=== PATIENT | male | born 1990 | race American Indian/Alaskan Native ===

== ENCOUNTER 2021-10-28 10:08 | Emergency (ER) | payer OTHER ==
--- NOTE | 2021-10-28 14:07 | Emergency Department Report ---
ED Upper Extremity Inj HPI - General Chief Complaint: Head Injury Stated Complaint: THUMP PAIN Time Seen by Provider: 10/28/21 12:15 Source: patient Mode of arrival: Ambulatory Limitations: No Limitations - History of Present Illness Initial Comments: Patient is 31 years old male with no significant past medical history. Patient presented to the ER for evaluation of right thumb injury. Patient stated that his thumb was jammed 2 days ago. He denied any other injuries. MD Complaint: Injury to:: right, hand, finger -: days(s) Other Extremity Injury: Hand: Right Other Injuries: none Severity scale (0 -10): 5 Improves With: none, immobilization Worsens With: movement of extremity Context: direct blow Associated Symptoms: denies other symptoms - Related Data Allergies Allergy/AdvReac Type Severity Reaction Status Date / Time No Known Allergies Allergy Verified 10/28/21 13:58 ED Review of Systems ROS: Stated complaint: THUMP PAIN Other details as noted in HPI Comment: All other systems reviewed and negative Constitutional: denies: chills, fever Respiratory: denies: cough, shortness of breath, SOB at rest Cardiovascular: denies: chest pain Gastrointestinal: denies: abdominal pain, nausea, vomiting Musculoskeletal: denies: back pain ED Physical Exam - General Limitations: No Limitations General appearance: alert, in no apparent distress - Head Head exam: Present: atraumatic, normocephalic, normal inspection - Eye Eye exam: Present: normal appearance - ENT ENT exam: Present: normal exam, normal orophraynx, mucous membranes moist - Neck Neck exam: Present: normal inspection, full ROM. Absent: tenderness, meningismus - Respiratory Respiratory exam: Present: normal lung sounds bilaterally - Cardiovascular Cardiovascular Exam: Present: regular rate, normal rhythm, normal heart sounds - GI/Abdominal GI/Abdominal exam: Present: soft, normal bowel sounds. Absent: distended, tenderness, guarding, rebound, rigid, organomegaly, mass, bruit, pulsatile mass, hernia - Extremities Exam Extremities exam: Present: normal inspection, full ROM, normal capillary refill. Absent: tenderness - Expanded Upper Extremity Exam Right Hand Wrist exam: Present: tenderness. Absent: full ROM Neuro motor exam: Present: wrist extension intact, thumb opposition intact Neurosensory exam: Present: 2-point discrimination, radial nerve intact, ulnar nerve intact, median nerve intact Vascular: Present: normal capillary refill - Back Exam Back exam: Present: normal inspection - Neurological Exam Neurological exam: Present: alert, oriented X3, CN II-XII intact - Psychiatric Psychiatric exam: Present: normal mood - Skin Skin exam: Present: warm, intact, normal color ED Course Vital Signs 10/28/21 13:56 Temperature 98 F Pulse Rate 79 Respiratory 16 Rate Blood Pressure 129/70 [Left] O2 Sat by Pulse 100 Oximetry ED Medical Decision Making - Radiology Data Radiology results: report reviewed - Medical Decision Making Patient is 31 years old male with no significant past medical history. Patient presented to the ER for evaluation of right thumb injury. Patient stated that his thumb was jammed 2 days ago. He denied any other injuries. Right hand x-ray is unremarkable including the thumb. Patient given prescription for Naprosyn and advised to follow-up with his primary doctor in the next 2 to 3 days and to return to the ER if he develop any new symptoms. Critical care attestation.: If time is entered above; I have spent that time in minutes in the direct care of this critically ill patient, excluding procedure time. ED Disposition Clinical Impression: Contusion of thumb, right Disposition: 01 HOME / SELF CARE / HOMELESS Is pt being admited?: No Condition: Stable Instructions: Contusion, [id number] Referrals: PRIMARY CARE, [Primary Care Provider] - 3-5 Days
--- NOTE | 2021-10-28 14:43 | XRay Report ---
RIGHT HAND 3 VIEWS INDICATION: RIGHT THUMB INJURY. COMPARISON: None. IMPRESSION: No acute osseous or soft tissue abnormality. No significant DJD. The right thumb appe ars unremarkable. Signer Name: Tyler Flores Jr, MD Signed: 10/28/2021 2:38 PM Workstation Name: [id number]
[2021-10-28 15:59] VITALS: BP 108/75
== END 2021-10-28 15:59 | disposition home or self-care (01) ==
LOC: ED 10:08
DX: S60.011A Contusion of right thumb without damage to nail, initial encounter (principal); W23.0XXA Caught, crushed, jammed, or pinched between moving objects, initial encounter; Y93.89 Activity, other specified; Y92.89 Other specified places as the place of occurrence of the external cause; Y99.8 Other external cause status
CPT/HCPCS: 99283

== ENCOUNTER 2021-11-15 03:21 | Emergency (ER) | payer OTHER ==
[2021-11-15] MEDS ORDERED: cephALEXin 500 MG CAP PO ONE (05:09)
[2021-11-15] MEDS ORDERED: TETANUS,DIPH,PERTUSS(ACELL) VACCINE 0.5 ML SYRINGE IM ONE (05:09)
[2021-11-15] MEDS ORDERED: traMADol 50 MG TAB PO ONE (05:10)
[2021-11-15] MEDS ORDERED: LIDOCAINE-MPF (1%) 10 MG/1 ML VIAL 5 ML INFILTRATI ONE (05:10)
--- NOTE | 2021-11-15 06:14 | Emergency Department Report ---
ED Lower Extremity HPI - General Chief Complaint: Extremity Injury, Lower Stated Complaint: TOE NAIL INJURY Time Seen by Provider: 11/15/21 05:09 Source: patient Mode of arrival: Ambulatory Limitations: No Limitations - History of Present Illness Initial Comments: Patient 31-year-old male who presents for left great toenail partial avulsion. Patient states he is hit his nail on his door causing the nail to push back.. Sent approximately 8 hours ago. Patient complains of 5/10 pain with incidental palpation and movement. No erythema no deformity patient is amatory with steady gait. Last tetanus unknown. Patient denies history of diabetes. - Related Data Previous Rx's Medication Instructions Recorded Last Taken Type Naproxen [Naprosyn] 500 mg PO BID #14 tablet 10/28/21 Unknown Rx cephALEXin [Keflex] 500 mg PO BID 7 Days #14 cap 11/15/21 Unknown Rx traMADoL [Ultram] 50 mg PO Q6HR PRN #12 tablet 11/15/21 Unknown Rx Allergies Allergy/AdvReac Type Severity Reaction Status Date / Time No Known Allergies Allergy Verified 10/28/21 13:58 ED Review of Systems ROS: Stated complaint: TOE NAIL INJURY Other details as noted in HPI Constitutional: denies: chills, fever Eyes: denies: eye pain, eye discharge, vision change ENT: denies: ear pain, throat pain Respiratory: denies: cough, shortness of breath, wheezing Cardiovascular: denies: chest pain, palpitations Endocrine: no symptoms reported Gastrointestinal: denies: abdominal pain, nausea, diarrhea Genitourinary: denies: urgency, dysuria Musculoskeletal: other Skin: denies: rash, lesions Neurological: denies: headache, weakness, paresthesias Psychiatric: denies: anxiety, depression Hematological/Lymphatic: denies: easy bleeding, easy bruising ED Past Medical Hx - Medications Home Medications: Home Medications Medication Instructions Recorded Confirmed Last Taken Type Naproxen [Naprosyn] 500 mg PO BID #14 tablet 10/28/21 Unknown Rx cephALEXin [Keflex] 500 mg PO BID 7 Days #14 cap 11/15/21 Unknown Rx traMADoL [Ultram] 50 mg PO Q6HR PRN #12 tablet 11/15/21 Unknown Rx ED Physical Exam - General Limitations: No Limitations General appearance: alert, in no apparent distress - Head Head exam: Present: atraumatic, normocephalic - Eye Eye exam: Present: normal appearance - ENT ENT exam: Present: mucous membranes moist - Neck Neck exam: Present: normal inspection - Respiratory Respiratory exam: Present: normal lung sounds bilaterally. Absent: respiratory distress - Cardiovascular Cardiovascular Exam: Present: regular rate, normal rhythm. Absent: systolic murmur, diastolic murmur, rubs, gallop - GI/Abdominal GI/Abdominal exam: Present: soft, normal bowel sounds - Rectal Rectal exam: Present: deferred - Extremities Exam Extremities exam: Present: normal inspection - Expanded Lower Extremity Exam Left Foot/Toe exam: Present: tenderness, nail avulsion (Left great toe partial post) - Back Exam Back exam: Present: normal inspection, full ROM. Absent: CVA tenderness (R), CVA tenderness (L) - Neurological Exam Neurological exam: Present: alert, oriented X3 - Expanded Neurological Exam Expanded Patient oriented to: Present: person, place, time Motor strength exam: RLE: 5, LLE: 5 Best Eye Response (Kylie): (4) open spontaneously Best Motor Response (Grenola): (6) obeys commands Best Verbal Response (G[place]ola): (5) oriented [place] Total: 15 - Psychiatric Psychiatric exam: Present: normal affect, normal mood - Skin Skin exam: Present: warm, dry, intact, normal color. Absent: rash ED Course Vital Signs 11/15/21 03:24 Temperature 98.4 F Pulse Rate 85 Respiratory 18 Rate Blood Pressure 116/67 [Right] O2 Sat by Pulse 99 Oximetry - I & D Left Toe Type of Procedure: Simple (Left great toe partial avulsion) Site: Left great toe partial avulsion Blade Size: 11 I & D Procedure: betadine prep, sterile drapes applied, sterile dressing applied Progress: Left great toe partial avulsion site cleaned with Betadine solution, anesthesia with 1% lidocaine x3 cc anesthesia was achieved. Nailbed removed with 11 blade scalpel and 6 inch block forceps nailbed probed with Q-tip applicator, nail removed intact. All bleeding is controlled Vaseline and sterile dressing applied, sterile dressing applied patient given wound care instructions including follow-up with primary care doctor signs and symptoms of infection in 2 days. Wound care and dressing change. Patient tolerated procedure with minimal distress ED Lower Extremity MDM - Medical Decision Making Left toe partial avulsion see procedure note for nail removal patient given discharge instructions symptoms of infection when to return to ED. DC'd at this time with prescriptions. Patient verbalized agreement and understanding with same patient ambulatory to home at this time. Critical care attestation.: If time is entered above; I have spent that time in minutes in the direct care of this critically ill patient, excluding procedure time. ED Disposition Clinical Impression: Nail avulsion of toe Qualifiers: Encounter type: initial encounter Qualified Code(s): S91.209A - Unspecified open wound of unspecified toe(s) with damage to nail, initial encounter Disposition: HOME / SELF CARE / HOMELESS Is pt being admited?: No Does the pt Need Aspirin: No Condition: Stable Instructions: Fingernail or Toenail Removal, Adult, Care After Additional Instructions: Wound care daily as directed. Take all medications as prescribed, follow-up with your doctor in 2 days for wound check. Return to emergency department for symptoms worsen. Prescriptions: cephALEXin [Keflex] 500 mg PO BID 7 Days #14 cap traMADoL [Ultram] 50 mg PO Q6HR PRN #12 tablet PRN Reason: Pain Referrals: DANIELLE KEENE MD [Staff Physician] - 3-5 Days Forms: Work/School Release Form(ED) Time of Disposition: 06:17
[2021-11-15 06:35] VITALS: BP 104/56
== END 2021-11-15 06:30 | disposition home or self-care (01) ==
LOC: ED 03:21
DX: S91.202A Unspecified open wound of left great toe with damage to nail, initial encounter (principal); W22.8XXA Striking against or struck by other objects, initial encounter; Y93.89 Activity, other specified; Y92.89 Other specified places as the place of occurrence of the external cause; Y99.8 Other external cause status
CPT/HCPCS: 11730; 90471; 90715; 99282; J3490

== ENCOUNTER 2022-01-22 01:25 | Emergency (ER) | payer SELFPAY ==
[2022-01-22 02:01] VITALS: BP 116/52
--- NOTE | 2022-01-22 03:51 | XRay Report ---
RIGHT SHOULDER 3 VIEWS INDICATION / CLINICAL INFORMATION: Injury with right shoulder pain. COMPARISON: None available. FINDINGS: BONES / JOINT(S): The joint spaces are well-maintained. No significant arthritis. There is no evidenc e of acute fracture or subluxation. SOFT TISSUES: No significant abnormality. ADDITIONAL FINDINGS: The visualized right lung is clear. IMPRESSION: No acute abnormality. Signer Name: Jose Cook MD Signed: 01/22/2022 3:46 AM Workstation Name: [id number]
[2022-01-22] MEDS ORDERED: IBUPROFEN 800 MG TAB PO ONE (07:34)
--- NOTE | 2022-01-22 07:39 | Emergency Department Report ---
ED Upper Extremity Inj HPI - General Chief Complaint: Extremity Injury, Upper Stated Complaint: COLLARBONE OUT OF PLACE Time Seen by Provider: 01/22/22 07:34 Source: patient Mode of arrival: Ambulatory Limitations: No Limitations - History of Present Illness Initial Comments: 31 YO COMES TO ER WITH R SHOULDER PAIN STARTED AFTER WORKING. HE LIFTS ITEMS AT WORK. HE IS CO HE DISLOCATED HIS SHOULDER. HAS FULL ROM ON EXAM NEUROVASC INTACT NO HX OF THE SAME AMBULATORY AND NON ILL APPEARING ON EXAM MD Complaint: Injury to:: right -: Sudden Place: work Improves With: immobilization Worsens With: movement of extremity Context: other Associated Symptoms: denies other symptoms - Related Data Previous Rx's Medication Instructions Recorded Last Taken Type Cyclobenzaprine [Flexeril] 10 mg PO TID PRN #10 tablet 01/22/22 Unknown Rx Ibuprofen [Motrin] 800 mg PO Q8HR PRN #30 tablet 01/22/22 Unknown Rx Allergies Allergy/AdvReac Type Severity Reaction Status Date / Time No Known Allergies Allergy Verified 10/28/21 13:58 ED Review of Systems ROS: Stated complaint: COLLARBONE OUT OF PLACE Other details as noted in HPI Comment: All other systems reviewed and negative ED Past Medical Hx - Past Medical History Previous Medical History?: No - Surgical History Past Surgical History?: No - Family History Family history: no significant - Social History Smoking Status: Never Smoker Substance Use Type: Alcohol - Medications Home Medications: Home Medications Medication Instructions Recorded Confirmed Last Taken Type Cyclobenzaprine [Flexeril] 10 mg PO TID PRN #10 tablet 01/22/22 Unknown Rx Ibuprofen [Motrin] 800 mg PO Q8HR PRN #30 tablet 01/22/22 Unknown Rx ED Physical Exam - General Limitations: No Limitations General appearance: alert, in no apparent distress - Head Head exam: Present: atraumatic, normocephalic - Eye Eye exam: Present: normal appearance - ENT ENT exam: Present: mucous membranes moist - Neck Neck exam: Present: normal inspection - Respiratory Respiratory exam: Present: normal lung sounds bilaterally. Absent: respiratory distress - Cardiovascular Cardiovascular Exam: Present: regular rate, normal rhythm. Absent: systolic murmur, diastolic murmur, rubs, gallop - GI/Abdominal GI/Abdominal exam: Present: soft, normal bowel sounds - Rectal Rectal exam: Present: deferred - Extremities Exam Extremities exam: Present: normal inspection - Expanded Upper Extremity Exam Right Shoulder Exam: Present: tenderness (ABOVE COLLAR BONE) Upper Arm exam: Present: normal inspection - Back Exam Back exam: Present: normal inspection - Neurological Exam Neurological exam: Present: alert, oriented X3 - Psychiatric Psychiatric exam: Present: normal affect, normal mood - Skin Skin exam: Present: warm, dry, intact, normal color. Absent: rash ED Course Vital Signs 01/22/22 01:45 Temperature 98.1 F Pulse Rate 61 Respiratory 18 Rate Blood Pressure 116/52 O2 Sat by Pulse 100 Oximetry ED Medical Decision Making - Radiology Data Radiology results: report reviewed, image reviewed NAP - Medical Decision Making Vital Signs 01/22/22 01:45 Temperature 98.1 F Pulse Rate 61 Respiratory 18 Rate Blood Pressure 116/52 O2 Sat by Pulse 100 Oximetry MEDICATED FOR PAIN XRAY NOTED ARM SLING AND ICE APPLIED NEUROVASC INTACT DC HOME WITH DC PLAN OF CARE INCLUDING DIET, ACTIVITY, MEDS AND FOLLOW UP. HE VERBALIZES UNDERSTANDING - Differential Diagnosis RO FX/DISLOCATION Critical care attestation.: If time is entered above; I have spent that time in minutes in the direct care of this critically ill patient, excluding procedure time. ED Disposition Clinical Impression: Shoulder pain Qualifiers: Chronicity: acute Laterality: right Qualified Code(s): M25.511 - Pain in right shoulder Disposition: 01 HOME / SELF CARE / HOMELESS Is pt being admited?: No Does the pt Need Aspirin: No Condition: Stable Instructions: Shoulder Pain Additional Instructions: SLING FOR A FEW DAYS FOR COMFORT OVER USE CAN CAUSE MORE HARM THAN GOOD - SO DO NOT USE BEYOND THAT TIME FOLLOW UP WITH ORTHO MD NEXT WEEK REFERRAL BELOW MEDS GIVEN TO YOU TODAY Referrals: FELIPE FRANCOIS MD [Staff Physician] - 3-5 Days Forms: Work/School Release Form(ED) Time of Disposition: 07:38
[2022-01-22] MEDS ORDERED: predniSONE 20 MG TAB PO NR (08:30)
== END 2022-01-22 09:39 | disposition home or self-care (01) ==
LOC: ED 01:25
DX: M25.511 Pain in right shoulder (principal); Z72.89 Other problems related to lifestyle; Z79.899 Other long term (current) drug therapy
CPT/HCPCS: 99283